=== PATIENT | female | born 1965 | race Caucasian/White ===

== ENCOUNTER 2017-01-28 09:12 | Emergency (ER) | payer OTHER ==
[~2017-01-28] VITALS: Ht 172.7 cm; Wt 123.8 kg
[~2017-01-28 09:12] MED LIST: ASPIRIN CHILDRE81 MG PO; AUGMENTIN 875 M1 TAB PO; BYSTOLIC10 MG PO; EXFORGE 5 MG-321 TAB PO; LEVETIRACETAM750 MG PO; TORADOL10 MG PO; VIMPAT PO; ZOFRAN4 M1 SL
--- NOTE | 2017-01-28 09:24 | ED GENERAL ADULT ---
History of Present Illness General Chief Complaint: Headache Stated Complaint: BAKER, HX OF TIA Source: patient Exam Limitations: no limitations Vital Signs & Intake/Output Vital Signs & Intake/Output Vital Signs Date Time Temp Pulse Resp B/P Pulse O2 O2 Flow FiO2 Ox Delivery Rate 01/28 1307 97.3 69 18 148/86 95 Room Air 01/28 1145 97.8 84 18 151/68 97 Room Air 01/28 0915 98.8 77 20 126/80 96 Room Air Allergies Coded Allergies: No Known Allergies (01/28/17) Reconcile Medications AMLODIPINE/VALSARTAN (Exforge 5-320 MG Tablet) 5 MG-320 MG TABLET 1 TAB PO DAILY HEART (Reported) Lacosamide (Vimpat 50 MG) 50 MG TABLET 2 TAB PO BID UNKNOWN (Reported) Levetiracetam 750 MG TABLET 2 TAB PO BID SEIZURES (Reported) Nebivolol Hydrochloride (Bystolic) 10 MG TAB 1 TAB PO DAILY HEART (Reported) Triage Note: PT TO ED C/O HEADACHE, STARTED LAST NIGHT AROUND 1900. PT TOOK HER MEDS AND WENT TO BED. STATES SHE WOKE UP AROUND 2030 LAST NIGHT AND VOMITED ABOUT "10 TIMES". H/O TIA IN 2013. PT STATES "I THINK IT'S A REALLY BAD MIGRAINE". H/O SEIZURES ALSO. Triage Nurses Notes Reviewed? yes Onset: Abrupt Duration: hour(s): Timing: recent history HPI: 01/28/17 9:40 AM This is a 51-year-old female presents to the emergency department complaining of a headache. The patient states she was in her usual state of health until last night at 7 PM when she developed a sudden onset of bitemporal headache associated with vomiting. She also has photophobia. She does have a history of migraine headaches and they usually resolve by just going to sleep. She also has a history of seizure disorder. She also has a history of hypertension. She also has a history of TIA and melanoma. She had the melanoma excised when she was 29. Past History Travel History Traveled to [place] past 21 day No Medical History Any Pertinent Medical History? see below for history Neurological: seizure, TIA EENT: NONE Cardiovascular: hypertension, MURMUR Respiratory: bronchitis Gastrointestinal: NONE Hepatic: NONE Renal: NONE Musculoskeletal: NONE Psychiatric: NONE Endocrine: NONE Blood Disorders: NONE Cancer(s): NONE VIDEO JOURNALIST/Reproductive: NONE Tetanus Vaccine: 06/19/15 Surgical History Surgical History: hysterectomy Psychosocial History What is your primary language Bulgarian Tobacco Use: Current Daily Use Daily Tobacco Use Amount/Type: => 5 Cigarettes daily ETOH Use: denies use Illicit Drug Use: denies illicit drug use Family History Hx Contributory? No Review of Systems Review of Systems Constitutional: Denies: fever. EENTM: Denies: visual changes. Respiratory: Denies: short of breath. Cardiovascular: Denies: chest pain. GI: Denies: abdominal pain. Genitourinary: Reports: no symptoms. Musculoskeletal: Reports: no symptoms. Skin: Reports: no symptoms. Neurological/Psychological: Reports: headache. Hematologic/Endocrine: Denies: bruising. Physical Exam Physical Exam General Appearance: well developed/nourished, alert, awake, anxious, moderate distress Head: atraumatic, normal appearance Eyes: Bilateral: normal appearance (no papilledema), PERRL, EOMI (fundi clear). Ears, Nose, Throat: normal pharynx, normal ENT inspection Neck: normal inspection, supple, full range of motion, no nuchal rigidity Respiratory: normal breath sounds, chest non-tender, no respiratory distress Cardiovascular: regular rate/rhythm Peripheral Pulses: 4+ radial (R), 4+ radial (L) Gastrointestinal: non-tender Back: normal range of motion Extremities: normal inspection, normal range of motion Neurologic/Psych: no motor/sensory deficits, awake, alert, oriented x 3 Skin: intact, normal color, warm/dry Core Measures ACS in differential dx? No CVA/TIA Diagnosis: No Severe Sepsis Present: No Septic Shock Present: No Progress Differential Diagnoses I considered the following diagnoses in my evaluation of the patient: [Migraine headaches, tension headaches, brain mass, subarachnoid hemorrhage, meningitis, pseudotumor cerebri] Plan of Care: Orders Procedure Date/time Status LYME TITRE 01/28 0955 Complete COMPREHENSIVE METABOLIC PANEL 01/28 0955 Complete CBC WITHOUT DIFFERENTIAL 01/28 0955 Complete Laboratory Tests 01/28/17 1015: Anion Gap 5, Estimated GFR > 60, BUN/Creatinine Ratio 12.9, Glucose 98, Calcium 9.6, Total Bilirubin 0.7, AST 23, ALT 28, Alkaline Phosphatase 72, Total Protein 7.2, Albumin 4.1, Globulin 3.1, Albumin/Globulin Ratio 1.3, CBC w Diff NO MAN DIFF REQ, RBC 5.21, MCV 88.6, MCH 30.2, RDW 13.0, MPV 7.8, Gran % 81.1 H, Lymphocytes % 8.4 L, Monocytes % 10.1 H, Eosinophils % 0.1, Basophils % 0.3, Absolute Granulocytes 5.6, Absolute Lymphocytes 0.6 L, Absolute Monocytes 0.7 H, Absolute Eosinophils 0, Absolute Basophils 0, PUBS MCHC 34.0, Lyme Disease Antibody 0.29 01/28/17 The patient was reevaluated prior to discharge. Headache much improved. She says the headaches are similar to her prior migraines. CAT scan of the head was negative. I considered subarachnoid hemorrhage. She has a prior history of headaches, these are similar. She has no nuchal rigidity and a normal neurological exam. I considered pseudotumor cerebri. She has no papilledema. She has a prior history of migraine headaches, her headaches improved with Reglan. (VITOR NEWBY DO) Initial ED EKG: none Departure Departure Disposition: HOME OR SELF CARE Condition: Stable Clinical Impression Primary Impression: Headache Referrals: MARK MERRITT,HEATHER Browne (PCP/Family) Departure Forms: Customer Survey General Discharge Information Comments 01/28/17 11:47 AM History dramatically improved. She has a prior history of migraines. CT scan of the head is negative labs essentially unremarkable other than mild hyponatremia. The patient will take her medications as directed Tylenol as needed for pain she will follow-up with her doctor in the next 72 hours or return to the emergency department if worse PATIENT: LYDIA ACEVES PRESENT AGE: 51 PATIENT ACCOUNT NO: [id number] : 66 LOCATION: [facility] ORDERING PHYSICIAN: VITOR NEWBY DO SERVICE DATE: 01/28/17 EXAM TYPE: CAT - CT HEAD WO IV CONTRAST EXAMINATION: CT HEAD WITHOUT CONTRAST CLINICAL INFORMATION: Headache COMPARISON: MRI from 04/08/2012 TECHNIQUE: Contiguous axial imaging was performed from the skull base to vertex without intravenous contrast. DLP: 529 mGy-cm. FINDINGS: The study is somewhat limited by motion artifact. There is no evidence of acute intracranial hemorrhage or territorial infarction. No abnormal mass effect or midline shift is seen. Haley to white matter differentiation is well preserved. No extra-axial fluid collections are identified. No hydrocephalus. No significant volume loss. There is no abnormal attenuation within the brain parenchyma. The osseous structures and soft tissues are normal. The mastoid air cells and visualized portions of the paranasal sinuses are well aerated. IMPRESSION: No acute intracranial pathology. DICTATED BY: DANIEL WILSON MD DATE/TIME DICTATED:01/28/171126 SPECIMEN COLLECTOR:CODY DATE/TIME TRANSCRIBED:01/28/171126 CONFIDENTIAL, DO NOT COPY WITHOUT APPROPRIATE AUTHORIZATION. <Electronically signed in Other Vendor System> SIGNED BY: DANIEL WILSON MD 01/28 1132 Critical Care Note Critical Care Note Critical Care Time: non-applicable
[2017-01-28 10:20] LABS: ABSOLUTE BASOPHIL COUNT 0 /CUMM (0.0-0.2); ABSOLUTE EOSINOPHIL COUNT 0 /CUMM (0.0-0.7); ABSOLUTE GRANULOCYTE CT 5.6 /CUMM (1.4-6.5); ABSOLUTE LYMPH COUNT 0.6 /CUMM (1.2-3.4); ABSOLUTE MONOCYTE COUNT 0.7 /CUMM (0.10-0.60); BASOPHIL % 0.3 % (0.0-2.0); EOSINOPHIL % 0.1 % (0-5); GRANULOCYTE % 81.1 % (42.2-75.2); HEMATOCRIT 46.2 % (37-47); MEAN CORPUSCULAR HGB 30.2 PG (27.0-31.0); MEAN CORPUSCULAR VOLUME 88.6 FL (81.0-99.0); MEAN PLATELET VOLUME 7.8 FL (7.4-10.4); PLATELET COUNT 269 /CUMM (130-400); RED BLOOD CELL CT 5.21 /CUMM (4.20-5.40); WHITE BLOOD CELL COUNT 6.9 /CUMM (4.8-10.8)
--- NOTE | 2017-01-28 11:32 | CT SCAN REPORT ---
EXAMINATION: CT HEAD WITHOUT CONTRAST CLINICAL INFORMATION: Headache COMPARISON: MRI from 04/08/2012 TECHNIQUE: Contiguous axial imaging was performed from the skull base to vertex without intravenous contrast. DLP: 529 mGy-cm. FINDINGS: The study is somewhat limited by motion artifact. There is no evidence of acute intracranial hemorrhage or territorial infarction. No abnormal mass effect or midline shift is seen. Haley to white matter differentiation is well preserved. No extra-axial fluid collections are identified. No hydrocephalus. No significant volume loss. There is no abnormal attenuation within the brain parenchyma. The osseous structures and soft tissues are normal. The mastoid air cells and visualized portions of the paranasal sinuses are well aerated. IMPRESSION: No acute intracranial pathology.
[2017-01-28 13:07] VITALS: BP 148/86
== END 2017-01-28 13:09 ==
LOC: ERH 09:12
PROVIDERS: Emergency Medicine
DX: R51 Headache (principal); R11.10 Vomiting, unspecified
CPT/HCPCS: 86618; 96374; 96375